=== PATIENT | female | born 1995 | race Hispanic/Latino ===

== ENCOUNTER 2022-06-08 16:09 | Outpatient (CLI) | payer OTHER ==
[2022-06-08 17:20] LABS: BHCG - Serum Negative (NEGATIVE); Pregs Control Background? CLEAR/WHITE (CLR/WHITE); Pregs Control Bar Appear? YES (CONTROL BAR)
== END 2022-06-08 16:10 | disposition home or self-care (01) ==
LOC: LABBT 16:09
PROVIDERS: ATTEND Student in an Organized Health Care Education/Training Program
DX: Z01.812 Encounter for preprocedural laboratory examination (principal); Z20.822 Contact with and (suspected) exposure to COVID-19
CPT/HCPCS: 84703; 85014; 87811

== ENCOUNTER 2022-06-13 06:06 | Day surgery (SDC) | payer OTHER ==
[2022-06-12 09:50] VITALS: BMI 25.4
[2022-06-13] MEDS ORDERED: Lidocaine 1% MPF 2 ML VIAL ONE ×2 (07:13→07:57)
[2022-06-13] MEDS ORDERED: Dexmedetomidine 200 MCG/2 ML VIAL ONE (07:19)
[2022-06-13] MEDS ORDERED: fentaNYL Citrate/PF 100 MCG/2 ML SYRINGE ONE (07:19)
[2022-06-13] MEDS ORDERED: Midazolam HCl 2 mg/2 ml Vial ONE (07:32)
[2022-06-13] MEDS ORDERED: Dexamethasone 20 MG/5 ML VIAL ONE (07:57)
[2022-06-13] MEDS ORDERED: PROPOFOL 200 MG/20 ML VIAL ONE (07:57)
[2022-06-13] MEDS ORDERED: Ondansetron PF 4 MG/2 ML Vial ONE (07:57)
== END 2022-06-13 10:45 | disposition home or self-care (01) ==
LOC: SDC 06:06
PROVIDERS: ATTEND Student in an Organized Health Care Education/Training Program
PROC: 0CTPXZZ Resection of Tonsils, External Approach (ICD-10-PCS; principal; 2022-06-13)
DX: J03.91 Acute recurrent tonsillitis, unspecified (principal); J35.01 Chronic tonsillitis; M41.9 Scoliosis, unspecified; G47.30 Sleep apnea, unspecified; F45.8 Other somatoform disorders; Z79.3 Long term (current) use of hormonal contraceptives; Z79.899 Other long term (current) drug therapy
CPT/HCPCS: 88304; J1100; J2250; J2405; J2704